=== PATIENT | male | born 1940 | race Caucasian/White ===

== ENCOUNTER → 2020-10-26 | Outpatient (CLI) | payer OTHER, MEDICARE ==
[~2020-10-26] MED LIST: ASPIRIN EC325 M1 PO; COLACE 100 MG100 MG PO; CRESTOR10 MG PO; METAMUCIL PAC1 UDPKT PO; NORCO 5-325 TA1 EACH PO; OMEPRAZOLE20 MG PO; PAIN & FEVER325 MG PO; ST. JOSEPH ASPI81 M1 PO; TAZTIA XT360 M1 PO; TRAMADOL 50 MG50 MG PO; VASERETIC 5-121 EACH PO; XARELTO10 M1 PO
== END ==
LOC: M.ULTRA 10:46
PROVIDERS: ATTEND Family Medicine
DX: R22.9 Localized swelling, mass and lump, unspecified (principal)

== ENCOUNTER → 2020-11-13 | Outpatient (CLI) | payer OTHER, MEDICARE ==
[2020-11-13 12:32] LABS: CREATININE 1.3 mg/dL (0.6-1.3)
== END ==
LOC: M.LAB 12:00 → M.CT 13:00
PROVIDERS: ATTEND Family Medicine
DX: D16.5 Benign neoplasm of lower jaw bone (principal); M50.30 Other cervical disc degeneration, unspecified cervical region; E04.1 Nontoxic single thyroid nodule

== ENCOUNTER → 2021-06-10 | Outpatient (CLI) | payer OTHER, MEDICARE ==
[2021-06-10 11:02] LABS: CALCIUM 8.1 mg/dL (8.5-10.1); CREATININE 2.3 mg/dL (0.6-1.3); POTASSIUM 3.3 mmol/L (3.5-5.1)
== END ==
LOC: M.LAB 10:28
PROVIDERS: ATTEND Nurse Practitioner Family
DX: N18.6 End stage renal disease (principal)

== ENCOUNTER → 2021-06-12 | Outpatient (CLI) | payer OTHER, MEDICARE ==
[2021-06-12 17:11] LABS: ALBUMIN 2.8 g/dL (3.4-5.0); CALCIUM 8.5 mg/dL (8.5-10.1); CREATININE 2.1 mg/dL (0.6-1.3); POTASSIUM 4.1 mmol/L (3.5-5.1); TOTAL BILIRUBIN 0.5 mg/dL (<0.1-1.0); TOTAL PROTEIN 6.7 g/dL (6.4-8.2)
[2021-06-15 10:07] LABS: URINE CREATININE 84.9 mg/dL (Not Estab.); URINE CREATININE (GM/24H) 934 mg/24 hr (1000-2000); URINE PROTEIN 364 mg/24 hr (30-150); URINE PROTEIN (MG/DL) 33.1 mg/dL (Not Estab.)
== END ==
LOC: M.LAB 09:20
PROVIDERS: ATTEND Nurse Practitioner Family
DX: Z01.812 Encounter for preprocedural laboratory examination (principal)